=== PATIENT | male | born 1945 | race Caucasian/White ===

== ENCOUNTER 2017-07-02 10:22 | Emergency (ER) | payer OTHER ==
[~2017-07-02] VITALS: Ht 167.6 cm; Wt 95.6 kg
[2017-07-02 10:45] VITALS: TEMP 37.1; Ht 167.6 cm; Wt 95.6 kg
[2017-07-02] MEDS ORDERED: SODIUM CHLORIDE 0.9% 1000ML 1,000 ML IV STA (11:48)
[2017-07-02] MEDS ORDERED: OPTIRAY 320 IV PRN (12:00)
[2017-07-02 12:14] LABS: BASO % 0.4 %; BASO ABS # 0.03 K/uL (0-0.2); COMPLETE YES; EOS % 3.3 %; HEMATOCRIT 41.9 % (42-52); IG% 0.1 %; LYMPH % 32.7 %; MEAN CELL VOLUME 89.5 fL (80-100); MEAN CORPUSCULAR HEMOGLOBIN 31.2 pg (25-34); MEAN CORPUSCULAR HGB CONC 34.8 g/dl (32-36); MEAN PLATELET VOLUME 11.4 fL (7.4-10.4); MONO % 8.2 %; NEUT % 55.3 %; PLATELET COUNT 156 K/uL (130-400); RED BLOOD COUNT 4.68 M/uL (4.7-6.1); WHITE BLOOD COUNT 6.72 K/uL (4.8-10.8)
[2017-07-02 12:22] LABS: URINE APPEARANCE CLEAR (CLEAR); URINE BILIRUBIN NEG (NEG); URINE COLOR YELLOW; URINE NITRITE NEG (NEG); URINE SPECIFIC GRAVITY 1.024 (1.000-1.030); UROBILINOGEN NEG (NEG)
[2017-07-02 12:23] LABS: PARTIAL THROMBOPLASTIN RATIO 1.1; PROTHROMBIN TIME (PATIENT) 10.1 SECONDS (9.0-12.0)
[2017-07-02 12:26] LABS: MANUAL MICROSCOPIC REQUIRED? NO; REVIEW REQ? NO
[2017-07-02 12:35] LABS: ALT/SGPT 50 U/L (12-78); BLOOD UREA NITROGEN 14 mg/dl (7-18); BUN/CREATININE RATIO 12.1 (10-20); CALCIUM 9.2 mg/dl (8.5-10.1); CARBON DIOXIDE 27 mmol/L (21-32); CHLORIDE 105 mmol/L (98-107); CREATININE 1.19 mg/dl (0.60-1.40); GLUCOSE 109 mg/dl (70-99); SODIUM 138 mmol/L (136-145)
[2017-07-02 12:38] LABS: ALKALINE PHOSPHATASE 90 U/L (45-117); AST/SGOT 28 U/L (15-37)
[2017-07-02] MEDS ORDERED: TRAM-10 PO (13:09)
[2017-07-02] MEDS ORDERED: AMLO-110 PO (13:09)
[2017-07-02] MEDS ORDERED: PRLSR20 PO (13:09)
[2017-07-02] MEDS ORDERED: MELO15TA4 PO (13:09)
[2017-07-02] MEDS ORDERED: INDSR80 PO (13:09)
[2017-07-02] MEDS ORDERED: TERA5CAP PO (13:09)
--- NOTE | 2017-07-02 14:43 | DIAGNOSTIC IMAGING REPORT ---
ABD/PELVIS IV AND ORAL CONT CLINICAL HISTORY: 71 years-old Male presenting with ABDOMINAL PAIN/GI, diffuse abdominal pain, bloody stool. TECHNIQUE: Multidetector CT of the abdomen and pelvis was performed after the administration of oral and intravenous contrast. IV contrast: 92 mL of Optiray 320. A dose lowering technique was used consistent with the principles of ALARA (as low as reasonably achievable). COMPARISON: None. CT DOSE (mGy.cm): The estimated cumulative dose is 968.41 mGy.cm. FINDINGS: Watermelon Inspector topogram: Unremarkable. Lung bases: Lungs and pleural spaces clear. Normal heart size. No pericardial or pleural effusion. Liver: Normal morphology. Density consistent with hepatic steatosis. No focal lesion. Patent hepatic vasculature. Biliary: No intrahepatic or extrahepatic biliary ductal dilatation. Normal gallbladder. Pancreas: Mild parenchymal atrophy. Spleen: Normal. Adrenal glands: Normal. Kidneys and ureters: Normal. No hydronephrosis. Bladder: Mild circumferential bladder wall thickening could relate to chronic bladder obstruction. Pelvic organs: Prostate enlargement likely secondary to benign prostatic hyperplasia. Bowel: Diverticulosis of the proximal sigmoid colon and descending colon. Mild thickening of the sigmoid colon without pericolonic inflammatory change, suggestive of chronic diverticular disease. The appendix is normal. Post surgical changes of Ricky fundoplication. Few small duodenal diverticula suggested along the descending portion. Peritoneal cavity: No free fluid or intraperitoneal gas. Lymph nodes: No enlarged lymph nodes in the abdomen or pelvis. Vasculature: Atherosclerosis of the normal caliber abdominal aorta. IVC patent. Retroaortic left renal vein noted. Abdominal wall: Normal. Musculoskeletal: Degenerative changes of the spine focally at L5-S1. IMPRESSION: 1. Diverticulosis with evidence of chronic diverticular disease. No evidence of diverticulitis. No acute intra-abdominal pathology. 2. Hepatic steatosis. 3. Mild circumferential bladder wall thickening could relate to chronic bladder outlet obstruction in the setting of prostatomegaly. Electronically signed by: Jesus Toth M.D. 07/02/2017 2:42 PM Dictated Date/Time: 07/02/2017 2:35 PM
[2017-07-02 15:43] VITALS: BP 111/87; PULSE 65; O2SAT 94
--- NOTE | 2017-07-02 19:43 | EMERGENCY ROOM VISIT NOTE ---
ED Visit Note First contact with patient: 11:21 Chief Complaint: Abdominal pain and rectal bleeding History of Present Illness: Mr. Mann is a 71 year-old white male who ambulates into the ED complaining of bilateral lower quadrant abdominal pain and rectal bleeding. Historically patient reports diverticulitis and status post Whipple procedure. Patient reports his symptoms started approximately one month ago when he noticed that his urine smelled it like sulfur. That lasted approximately 3 weeks and stopped approximately one week ago. Patient goes on to report that approximately 18 hours ago he started developing bilateral lower abdominal pain. He places this discomfort inferior to the umbilicus and extends his discomfort into the medial border of the right and lower quadrants. He describes his pain as a sharp sensation. He reports initially is mild has gradually increased in intensity. Currently he rates his discomfort 5/10. The pain is nonradiating. He has not identified any aggravating or alleviating factors related to the pain. He has not taken any medication for pain prior to arrival at the hospital. Associated with his pain he reports she's been nauseated but has not vomited, has noted a decreased appetite and this morning after having a bowel movement he noted bright red blood in the toilet bowl and on the toilet tissue. He reports he contacted the [facility] in [place] and they recommended that he come to the emergency department for further evaluation and care. Patient denies fevers, chills, sweats, upper respiratory tract symptoms, shortness of breath, chest pain, diarrhea, constipation, black/tarry stools, urinary symptoms, hematuria, back/flank pain. Review of Systems: As noted above in history of present illness. All body systems were reviewed and found to be negative as noted above. Past Medical History: As previously noted and alcoholism, hypertension, emphysema, gallbladder disease Current Medications: Medications Dose Route/Sig Max Daily Dose Days Date Category Hytrin (Terazosin HCl) Unknown Strength Cap 1 Cap PO DAILY 07/02/17 Reported Meloxicam Unknown Strength Tab 1 Tab PO DAILY 07/02/17 Reported Prilosec (Omeprazole) Unknown Strength Capcr 1 Cap PO DAILY 07/02/17 Reported Norvasc (Amlodipine Besylate) Unknown Strength Tab 1 Tab PO DAILY 07/02/17 Reported Propranolol HCl ER (Propranolol HCl) 80 Mg Capcr 160 Mg PO DAILY 07/02/17 Reported Ultram (Tramadol HCl) 50 Mg Tab 150 Mg PO DAILY 07/02/17 Reported Allergies to Medications: Penicillin, trazodone, Klonopin. Social History: Patient is not employed; he feels safe in his home environment; he denies tobacco and alcohol use. Physical Examination: Vital Signs: Date Time Temp Pulse Resp B/P (MAP) Pulse Ox O2 Delivery O2 Flow Rate FiO2 07/02/17 15:43 65 111/87 94 Room Air 07/02/17 13:39 67 20 141/89 97 Room Air 07/02/17 11:57 68 18 141/93 95 Room Air 07/02/17 10:45 37.1 86 18 133/87 93 Room Air GENERAL: 71-year-old male in mild distress due to him times, nontoxic-appearing , afebrile and hemodynamically stable. NEUROLOGICAL: Awake, alert and oriented to person, place and time. Answering questions appropriately and following commands. Normal gait. Good hand eye coordination. SKIN: Warm, dry and pink. No soft tissue eruptions or trauma noted. HEENT: Atraumatic and normocephalic. PERRL. Sclera white and conjunctiva pink. Oral cavity moist and pink. Pharynx is nonerythematous or edematous. Speech normal. No lymphadenopathy. Trachea midline. No jugular venous distention. BACK: No tenderness over the bony spine. No CVA tenderness. THORAX: Lungs sounds are clear to auscultation and equal bilaterally with symmetrical chest wall. No wheezing, rales or rhonchi. No crepitus, tenderness , subcutaneous air or deformities noted. HEART: Regular rate and rhythm. No gallops, rubs or murmurs are appreciated. ABDOMEN: Mildly distended in the lower abdomen, soft and diffuse tenderness throughout the lower abdomen. Positive bowel sounds in all quadrants. No guarding, rigidity or organomegaly. RECTAL: No external tags or hemorrhoids. Normal rectal tone. No palpable rectal masses. Prostrate was slightly enlarged and firm to palpation. Heme- negative stools. EXTREMITIES: Moves all extremities well on command and with purpose. All distal neurovascular statuses are intact and equal bilaterally. ED Course: Patient is assessed as noted above. Patient's medication list was reviewed. Laboratory Testing: Test 07/02/17 11:50 07/02/17 12:00 Range/Units White Blood Count 6.72 4.8-10.8 K/uL Red Blood Count 4.68 4.7-6.1 M/uL Hemoglobin 14.6 14.0-18.0 g/dL Hematocrit 41.9 42-52 % Mean Corpuscular Volume 89.5 80-100 fL Mean Corpuscular Hemoglobin 31.2 25-34 pg Mean Corpuscular Hemoglobin Concent 34.8 32-36 g/dl Platelet Count 156 130-400 K/uL Mean Platelet Volume 11.4 7.4-10.4 fL Neutrophils (%) (Auto) 55.3 % Lymphocytes (%) (Auto) 32.7 % Monocytes (%) (Auto) 8.2 % Eosinophils (%) (Auto) 3.3 % Basophils (%) (Auto) 0.4 % Neutrophils # (Auto) 3.71 1.4-6.5 K/uL Lymphocytes # (Auto) 2.20 1.2-3.4 K/uL Monocytes # (Auto) 0.55 0.11-0.59 K/uL Eosinophils # (Auto) 0.22 0-0.5 K/uL Basophils # (Auto) 0.03 0-0.2 K/uL RDW Standard Deviation 42.2 36.4-46.3 fL RDW Coefficient of Variation 13.0 11.5-14.5 % Immature Granulocyte % (Auto) 0.1 % Immature Granulocyte # (Auto) 0.01 0.00-0.02 K/uL Prothrombin Time 10.1 9.0-12.0 SECONDS Prothromb Time International Ratio 1.0 0.9-1.1 Activated Partial Thromboplast Time 28.0 21.0-31.0 SECONDS Partial Thromboplastin Ratio 1.1 Sodium Level 138 136-145 mmol/L Potassium Level 4.0 3.5-5.1 mmol/L Chloride Level 105 98-107 mmol/L Carbon Dioxide Level 27 21-32 mmol/L Anion Gap 7.0 3-11 mmol/L Blood Urea Nitrogen 14 7-18 mg/dl Creatinine 1.19 0.60-1.40 mg/dl Est Creatinine Clear Calc Drug Dose 63.4 ml/min Estimated GFR () 71.8 Estimated GFR (Non- 62.0 BUN/Creatinine Ratio 12.1 10-20 Random Glucose 109 70-99 mg/dl Calcium Level 9.2 8.5-10.1 mg/dl Total Bilirubin 0.4 0.2-1 mg/dl Direct Bilirubin < 0.1 0-0.2 mg/dl Aspartate Amino Transf (AST/SGOT) 28 15-37 U/L Alanine Aminotransferase (ALT/SGPT) 50 12-78 U/L Alkaline Phosphatase 90 45-117 U/L Total Protein 7.8 6.4-8.2 gm/dl Albumin 4.0 3.4-5.0 gm/dl Lipase 220 73-393 U/L Urine Color YELLOW Urine Appearance CLEAR CLEAR Urine pH 5.0 4.5-7.5 Urine Specific [place] 1.024 1.000-1.030 Urine Protein NEG NEG Urine Glucose (UA) NEG NEG Urine Ketones NEG NEG Urine Occult Blood NEG NEG Urine Nitrite NEG NEG Urine Bilirubin NEG NEG Urine Urobilinogen NEG NEG Urine Leukocyte Esterase NEG NEG Contrast abdominal/pelvic CT: Was reviewed by myself and read by the radiologist and shows effort to kill low-dose is without evidence of diverticulitis, hepatic steatosis, mild circumferential bladder wall thickening which could be related to chronic bladder outlet obstruction in the setting of prostatomegaly. Patient was hydrated with normal saline; he was offered pain medications and refused. Patient was reassessed multiple times during his stay in the emergency department. Patient's case was reviewed with Dr. Smart; we agreed on diagnostic approach , treatment, disposition and plan. Patient was educated about today's findings and instructed on his treatment plan ; he verbalized understanding and agreement with this plan. Clinical Impression: Bilateral lower quadrant abdominal pain. Rectal bleeding. Decision-Making: Initially my differential diagnosis I considered hemorrhoids, diverticulitis, colitis, perforated viscus and other causes. Disposition: Patient discharged home in stable condition; prior to departure he was reassessed and subjectively reported he was pain and symptom-free. Plan: Patient was encouraged to continue his current medications. Patient was encouraged use 650 mg of acetaminophen every 6 hours as needed for pain. Patient was encouraged to observe his stools for additional bleeding. 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 Patient was encouraged return ED for worsening bleeding, rectal bleeding that turns black and tarry appearance, worsening abdominal pain, vomiting, fevers or any new/concerning symptoms.
== END 2017-07-02 16:02 | disposition home or self-care (01) ==
LOC: C.EDB 10:24
DX: R10.31 Right lower quadrant pain (principal); R10.32 Left lower quadrant pain; K62.5 Hemorrhage of anus and rectum; F10.20 Alcohol dependence, uncomplicated; I10 Essential (primary) hypertension; J43.9 Emphysema, unspecified

== ENCOUNTER 2023-09-16 08:53 | Observation (INO) ==
--- NOTE | 2023-09-16 09:27 | Emergency Department Note ---
History of Present Illness General Chief complaint: Stroke/CVA Symptoms Stated complaint: THURS/SEVERE HEADEACHE BLURRY VISION/LIPS Time Seen by Provider: 09/16/23 09:08 Source: patient, RN notes reviewed and old records reviewed (03/10/19-outpatient dermatology notes for tinea ) Mode of arrival: ambulatory Limitations: no limitations History of Present Illness This patient is a 77-year-old male comes in after [facility]. He had an episode this past where he was eating breakfast he thought he was going to pass out. He thought he might be dying. The episode lasted about an hour and a half. He had a headache at the time he was short of breath he had no chest pain his heart may have been beating fast he felt weak all over his eyes were blurry. He laid down and since since felt just generally tired and washed out. No headache anymore there is no trauma no chest pain he feels diffusely weak and tingly but says he tends to get that from his diabetes. A similar episode 2 weeks ago as well that lasted only about 5 seconds. He says his lips feel full now but he has no shortness of breath or swelling of the posterior oropharynx or sore throat. No current focal numbness or weakness he still says his vision feels slightly off but that is also been a chronic issue. Denies that he is on any blood thinners Home Medications Medication Instructions Recorded Confirmed Type amlodipine 10 mg tablet 10 mg PO QAM 03/10/19 09/16/23 History ketoconazole 2 % shampoo 1 appln topical .COMPLEX #120 mL 03/10/19 09/16/23 Rx pantoprazole 40 mg tablet,delayed 40 mg PO QAM 03/10/19 09/16/23 History release propranolol 80 mg capsule,24 80 mg PO BID 03/10/19 09/16/23 History hr,extended release tramadol 50 mg tablet 150 mg PO QAM 03/10/19 09/16/23 History gabapentin 300 mg tablet 300 mg PO TID 09/16/23 09/16/23 History lisinopril 5 mg tablet 2.5 mg PO QAM 09/16/23 09/16/23 History metformin 500 mg tablet,extended See Rx Instructions .Route .COMPLEX 09/16/23 09/16/23 History release 24 hr Allergies Allergy/AdvReac Type Severity Reaction Status Date / Time Penicillins Allergy Intermediate HIVES, Verified 09/16/23 11:52 CHILDHOOD thioridazine [From Mellaril] Allergy Unknown I don't Unverified 09/16/23 11:52 remember, it was a long time ago. 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 He did stop his cholesterol medicine a couple months ago. He initially denied any cardiac disease but tells me he may have had a heart attack in the past but they could not find any evidence of it at 1 point he says. Social history lives locally. Does not smoke Review of Systems A total of 10 systems reviewed and were otherwise negative Physical Exam Vital Signs Vital Signs - 24 hr 09/16/23 08:59 09/16/23 09:17 09/16/23 09:20 Temperature 36.1 C L Temperature Source Temporal Artery Scan Pulse Rate 67 66 61 Pulse Rate [Apical] Pulse Rate from SpO2 Sensor 63 60 Pulse Rhythm [Apical] Pulse Strength [Apical] Respiratory Rate 20 17 9 L Respiratory Effort / Characteristics Non-Labored Spontaneous Respiratory Depth Normal Blood Pressure 190/101 H Blood Pressure [Left Arm] Blood Pressure Mean 130 Blood Pressure Mean [Left Arm] Pulse Oximetry 96 97 95 Oxygen Delivery Method Room Air Sepsis Recent Fever Within 48 Hours No Sepsis New/Unexplained Change in Mental Status N/A Sepsis Action Taken by Nursing No Action Required 09/16/23 09:21 09/16/23 09:30 09/16/23 09:40 Temperature Temperature Source Pulse Rate 65 61 73 Pulse Rate [Apical] Pulse Rate from SpO2 Sensor 62 64 Pulse Rhythm [Apical] Pulse Strength [Apical] Respiratory Rate 16 16 Respiratory Effort / Characteristics Respiratory Depth Blood Pressure Blood Pressure [Left Arm] Blood Pressure Mean Blood Pressure Mean [Left Arm] Pulse Oximetry 96 96 Oxygen Delivery Method Sepsis Recent Fever Within 48 Hours Sepsis New/Unexplained Change in Mental Status Sepsis Action Taken by Nursing 09/16/23 09:50 09/16/23 10:00 09/16/23 10:04 Temperature Temperature Source Pulse Rate 55 L 71 Pulse Rate [Apical] 60 Pulse Rate from SpO2 Sensor 55 L 54 L Pulse Rhythm [Apical] Regular Pulse Strength [Apical] Normal Respiratory Rate 10 L 15 16 Respiratory Effort / Characteristics Respiratory Depth Blood Pressure Blood Pressure [Left Arm] 151/78 H Blood Pressure Mean Blood Pressure Mean [Left Arm] 102 Pulse Oximetry 95 94 95 Oxygen Delivery Method Room Air Sepsis Recent Fever Within 48 Hours Sepsis New/Unexplained Change in Mental Status Sepsis Action Taken by Nursing 09/16/23 10:04 09/16/23 10:04 09/16/23 10:10 Temperature Temperature Source Pulse Rate 60 55 L Pulse Rate [Apical] Pulse Rate from SpO2 Sensor 57 L 55 L Pulse Rhythm [Apical] Pulse Strength [Apical] Respiratory Rate 12 9 L Respiratory Effort / Characteristics Respiratory Depth Blood Pressure 151/96 H Blood Pressure [Left Arm] Blood Pressure Mean 110 Blood Pressure Mean [Left Arm] Pulse Oximetry 95 94 Oxygen Delivery Method Sepsis Recent Fever Within 48 Hours Sepsis New/Unexplained Change in Mental Status Sepsis Action Taken by Nursing 09/16/23 10:20 09/16/23 10:30 09/16/23 10:40 Temperature Temperature Source Pulse Rate 55 L 57 L 55 L Pulse Rate [Apical] Pulse Rate from SpO2 Sensor 55 L 58 L 56 L Pulse Rhythm [Apical] Pulse Strength [Apical] Respiratory Rate 10 L 10 L 10 L Respiratory Effort / Characteristics Respiratory Depth Blood Pressure Blood Pressure [Left Arm] Blood Pressure Mean Blood Pressure Mean [Left Arm] Pulse Oximetry 97 94 96 Oxygen Delivery Method Sepsis Recent Fever Within 48 Hours Sepsis New/Unexplained Change in Mental Status Sepsis Action Taken by Nursing 09/16/23 10:50 09/16/23 11:10 09/16/23 11:18 Temperature Temperature Source Pulse Rate 119 H 59 L 150 H Pulse Rate [Apical] Pulse Rate from SpO2 Sensor 57 L Pulse Rhythm [Apical] Pulse Strength [Apical] Respiratory Rate 17 13 Respiratory Effort / Characteristics Respiratory Depth Blood Pressure Blood Pressure [Left Arm] Blood Pressure Mean Blood Pressure Mean [Left Arm] Pulse Oximetry 97 Oxygen Delivery Method Sepsis Recent Fever Within 48 Hours Sepsis New/Unexplained Change in Mental Status Sepsis Action Taken by Nursing 09/16/23 11:20 09/16/23 11:30 09/16/23 11:40 Temperature Temperature Source Pulse Rate 85 57 L 58 L Pulse Rate [Apical] Pulse Rate from SpO2 Sensor 44 L 59 L 57 L Pulse Rhythm [Apical] Pulse Strength [Apical] Respiratory Rate 14 18 18 Respiratory Effort / Characteristics Respiratory Depth Blood Pressure Blood Pressure [Left Arm] Blood Pressure Mean Blood Pressure Mean [Left Arm] Pulse Oximetry 94 96 96 Oxygen Delivery Method Sepsis Recent Fever Within 48 Hours Sepsis New/Unexplained Change in Mental Status Sepsis Action Taken by Nursing 09/16/23 11:50 09/16/23 12:00 09/16/23 12:10 Temperature Temperature Source Pulse Rate 62 58 L 55 L Pulse Rate [Apical] Pulse Rate from SpO2 Sensor 61 57 L 56 L Pulse Rhythm [Apical] Pulse Strength [Apical] Respiratory Rate 11 L 13 9 L Respiratory Effort / Characteristics Respiratory Depth Blood Pressure Blood Pressure [Left Arm] Blood Pressure Mean Blood Pressure Mean [Left Arm] Pulse Oximetry 95 95 95 Oxygen Delivery Method Sepsis Recent Fever Within 48 Hours Sepsis New/Unexplained Change in Mental Status Sepsis Action Taken by Nursing 09/16/23 12:20 09/16/23 12:30 Temperature Temperature Source Pulse Rate 64 88 Pulse Rate [Apical] Pulse Rate from SpO2 Sensor 61 54 L Pulse Rhythm [Apical] Pulse Strength [Apical] Respiratory Rate 18 17 Respiratory Effort / Characteristics Respiratory Depth Blood Pressure Blood Pressure [Left Arm] Blood Pressure Mean Blood Pressure Mean [Left Arm] Pulse Oximetry 97 96 Oxygen Delivery Method Sepsis Recent Fever Within 48 Hours Sepsis New/Unexplained Change in Mental Status Sepsis Action Taken by Nursing General: Well developed well nourished older male who appears in no acute distress, breathing comfortably on room air. Normal speech, answers all questions appropriately, nonslurred HEENT: Normal cephalic atraumatic. Pupils are equal round and reactive to light. Extraocular movements are intact. Oropharynx is pink with moist mucous membranes. No swelling of the mouth lips or tongue. No visible swelling the lips. Posterior oropharynx is wide open without swelling or angioedema. The tongue appears normal as well. Neck: Supple with a midline trachea. No meningeal signs or stiffness, no JVD or bruits. No Stridor. Chest: Clear to auscultation bilaterally. No wheezes or rhonchi. No increased work of breathing. Heart: Regular rate and rhythm without murmurs or gallops. Abdomen: Soft nontender, nondistended without rebound guarding or rigidity. Extremities: No cyanosis clubbing or edema. No calf tenderness or assymetry Spine/Back. Non tender to palpation. No CVA tenderness Skin: Good turgor without rashes. Neurologic exam: Cranial nerves two through 12 are intact. Motor and sensation are intact and symmetrical throughout. Finger-nose intact. Course Administered Medications Discontinued Medications Sodium Chloride (Nss) 500 mls @ 999 mls/hr IV .Q31M STA Stop: 09/16/23 09:49 Last Infusion: 09/16/23 13:03 Dose: Infused Documented By: Admin: 09/16/23 10:00 Dose: 999 mls/hr Documented By: MAMTA Medical Decision Making Differential Diagnosis Arrhythmia, acute coronary syndrome, neurologic event, TIA, electrolyte or metabolic abnormality, intracranial process, infection, Medical Records Attestation: I reviewed the patient's medical records. Home Medications Current Medication List: was personally reviewed by me Laboratory Data Attestation: I reviewed the patient's lab results. 09/16/23 09:15 09/16/23 10:15 Lab Results 09/16/23 09/16/23 Range/Units 09:15 10:15 WBC 6.50 (4.8-10.8) K/ul RBC 5.20 (4.70-6.10) M/uL Hgb 15.3 (14.0-18.0) g/dl Hct 45.3 (42.0-52.0) % MCV 87.1 (80.0-100.0) fL MCH 29.4 (25.0-34.0) pg MCHC 33.8 (32.0-36.0) g/dL RDW Std Deviation 43.1 (36.4-46.3) fL RDW Coeff of Ranjana 13.6 (11.5-14.5) % Plt Count 172 (130-400) K/uL MPV 11.2 (9.4-12.4) fL Immature Gran % (Auto) 0.3 % Neut % (Auto) 39.3 % Lymph % (Auto) 46.6 % [place] % (Auto) 8.2 % Eos % (Auto) 4.8 % Baso % (Auto) 0.8 % Neut # (Auto) 2.56 (1.40-6.50) K/uL Lymph # (Auto) 3.03 (1.20-3.40) K/uL [place] # (Auto) 0.53 (0.11-0.59) K/uL Eos # (Auto) 0.31 (0.00-0.50) K/uL Baso # (Auto) 0.05 (0.00-0.20) K/uL Immature Gran # (Auto) 0.02 (0.01-0.20) K/uL APTT 30 (21-31) Seconds PTT Ratio 1.1 Sodium 137 (136-145) mmol/L Potassium TNP 3.9 Chloride 105 (98-107) mmol/L Carbon Dioxide 24 (21-32) mmol/L Anion Gap 8 (3-11) BUN 16 (6-23) mg/dl Creatinine 0.97 (0.6-1.4) mg/dl Est Cr Clr Drug Dosing 71.3 ml/min Est GFR ( Amer) 88.1 ml/min Est GFR (Non-Af Amer) 76.1 ml/min BUN/Creatinine Ratio 16.5 (10-20) Glucose 99 (70-99(Fasting)) mg/dl Calcium 9.9 (8.6-10.3) mg/dl Total Bilirubin 0.6 (0.2-1.0) mg/dl AST TNP 37 ALT 56 H (7-52) U/L Alkaline Phosphatase 61 (34-104) U/L Troponin I High Sens 5.4 (0-20) pg/ml Total Protein 8.1 (6.0-8.3) gm/dl Albumin 4.8 (3.4-5.0) gm/dl Globulin 3.3 (2.5-4.0) gm/dl Albumin/Globulin Ratio 1.5 (0.9-2) Lipase 69 (11-82) U/L Lyme Disease Screen Negative (Negative) Imaging Data Attestation: I personally reviewed and interpreted this imaging study as follows: My Impression: Head CTno hemorrhage or mass effect seen upon my independent interpretation Chest x-rayno acute infiltrate, failure, pneumothorax seen Radiologist's Impression: Chest X-Ray 09/16/23 09:19 XR chest 1V portable HISTORY: Atypical chest pain. COMPARISON: None. FINDINGS: Small left basilar linear densities favor subsegmental atelectasis or scarring. Otherwise, no focal lung consolidations to suggest a pneumonia. No evidence for pulmonary edema. The heart is normal in size. No pleural fusions. No pneumothorax. No acute fractures. IMPRESSION: No acute process. ACT 112: Negative or not required by law. Electronically signed by: Arnav Hayes M.D. 09/16/2023 10:[address] 09/16/23 09:19 CT head/brain wo con CLINICAL HISTORY: 77 years-old Male with headache, diffuse weakness. Acute headache with weakness TECHNIQUE: Multiple axial CT images of the head were obtained without contrast. A dose lowering technique was utilized adhering to the principles of ALARA. CT DOSE: 602.38 mGy.cm COMPARISON: None. FINDINGS: No acute intracranial hemorrhage, midline shift, intracranial mass, hydrocephalus, territorial ischemia or abnormal extra-axial collection. Involutional changes with chronic microvascular ischemic disease. The calvarium is intact. Severe near complete opacification of the left maxillary sinus with mucoperiosteal thickening. Additional mild mucosal thickening of the left ethmoid air cells and sphenoid sinus. Unremarkable soft tissues. Prior right-sided lens repair. IMPRESSION: No acute intracranial abnormality. ACT 112: Negative or not required by law. The above report was generated using voice recognition software. It may contain grammatical, syntax or spelling errors. Electronically signed by: Marciano Laws M.D. 09/16/2023 11:13 AM ECG Data Attestation: I personally reviewed and interpreted this ECG as follows: Indication: + weakness Rate (beats per minute): 69 Rhythm: + normal sinus ECG Intervals/blocks: + IVCD ECG [place]: + Normal ECG ST segments: + Nonspecific ST abnormalities ECG Findings: no PACs or no PVCs Comparison ECG Date: no prior available Additional Comments: EKG #2: Sinus bradycardia intermittently with a run of what appears to be A-fib. Rate is 150 during the A-fib which lasted approximately 7 beats. No ischemic changes. Although the complex of the QRS is wide it appears unchanged from the complex prior to the run of A-fib MDM Narrative This patient comes in as described above. He was placed on a site monitor and B5. He has had 2 episodes where he felt very ill like he might pass out he had a headache associated with 1 as well as visual changes. The last episode lasted an hour and was on . He has no acute neurologic deficits at present to suggest acute stroke. IV X established multiple blood testing was obtained his EKG shows normal sinus rhythm there is nonspecific interventricular conduction delay but no old EKG available for comparison he has had no chest pain. Multiple blood testing was obtained as well as chest x-ray and head CT. He was COVID tested. He was reassessed frequently. He has no white count or fever discussed infection. No significant anemia. Chest x-ray does not suggest congestive heart failure, pneumonia, pneumothorax. His CAT scan was unremarkable. His labs are very reassuring there is no sign of electrolyte or metabolic abnormalities troponin was negative. He did however have several episodes on the monitor where he had small runs of what appears to be A-fib. I do not think is likely ventricular tachycardia. I do think he needs to be admitted/observed for further inpatient treatment and evaluation. His second EKG is different than the first and that it shows the A-fib and captured it. I have discussed the case at length with Dr. Barun in consultation and she saw the patient ER for admission/observation Continuous site monitor: Orders placed in the EMR for continuous cardiac monitoring: Upon my evaluation he was noted to be in normal sinus rhythm with a rate of 65. He did have intermittent episodes where he had about 8 beats of A- fib at a time when I reviewed the monitor strips. Impression & Plan Near syncope, Weakness, Atrial fibrillation, new onset, Diabetes mellitus type 2 in obese Discharge Plan Visit Data Chief Complaint: Stroke/CVA Symptoms Stated Complaint: THURS/SEVERE HEADEACHE BLURRY VISION/LIPS ED Provider: Apolinar Lima Discharge Problem: Near syncope, Weakness, Atrial fibrillation, new onset, Diabetes mellitus type 2 in obese Patient Disposition: Admitted As Inpatient Discharge Instructions Interventions: ED Discharge Assessment Last Done: 09/16/23 13:57
[2023-09-16 09:33] LABS: Basophils # (auto) 0.05 K/uL (0.00-0.20); Basophils % (auto) 0.8 %; Eosinophils # (auto) 0.31 K/uL (0.00-0.50); Eosinophils % (auto) 4.8 %; Hematocrit (blood only) 45.3 % (42.0-52.0); Hemoglobin 15.3 g/dl (14.0-18.0); Immature Granulocytes # (auto) 0.02 K/uL (0.01-0.20); Immature Granulocytes % (auto) 0.3 %; Lymphocytes # (auto) 3.03 K/uL (1.20-3.40); Lymphocytes % (auto) 46.6 %; Mean Corpuscular Hemoglobin 29.4 pg (25.0-34.0); Mean Corpuscular Hgb Conc 33.8 g/dL (32.0-36.0); Mean Corpuscular Volume 87.1 fL (80.0-100.0); Mean Platelet Volume 11.2 fL (9.4-12.4); Monocytes # (auto) 0.53 K/uL (0.11-0.59); Monocytes % (auto) 8.2 %; Neutrophils # (auto) 2.56 K/uL (1.40-6.50); Neutrophils % (auto) 39.3 %; Platelet Count 172 K/uL (130-400); RDW Coefficient of Variation 13.6 % (11.5-14.5); RDW Standard Deviation 43.1 fL (36.4-46.3)
[2023-09-16 09:58] LABS: Partial Thromboplastin Ratio 1.1; Partial Thromboplastin Time 30 Seconds (21-31)
[2023-09-16] MEDS: SODIUM CHLORIDE 0.9% 500 ML IV STA (10:00)
[2023-09-16 10:10] LABS: Alanine Aminotransferase 56 U/L (7-52); Albumin Globulin Ratio 1.5 (0.9-2); Albumin Level 4.8 gm/dl (3.4-5.0); Alkaline Phosphatase 61 U/L (34-104); Anion Gap 8 (3-11); BUN Creatinine Ratio 16.5 (10-20); Bilirubin,Total 0.6 mg/dl (0.2-1.0); Blood Urea Nitrogen 16 mg/dl (6-23); Calcium 9.9 mg/dl (8.6-10.3); Carbon Dioxide 24 mmol/L (21-32); Chloride 105 mmol/L (98-107); Creatinine Clr Calc Pharmacy 71.3 ml/min; Est GFR (African American) 88.1 ml/min; Est GFR (Non-African American) 76.1 ml/min; Globulin 3.3 gm/dl (2.5-4.0); Glucose 99 mg/dl (70-99(Fasting)); Lipase 69 U/L (11-82); Sodium 137 mmol/L (136-145); Total Protein 8.1 gm/dl (6.0-8.3); Troponin I High Sensitivity 5.4 pg/ml (0-20)
--- NOTE | 2023-09-16 10:14 | XRay Report ---
XR chest 1V portable HISTORY: Atypical chest pain. COMPARISON: None. FINDINGS: Small left basilar linear densities favor subsegmental atelectasis or scarring. Otherwise, no focal lung consolidations to suggest a pneumonia. No evidence for pulmonary edema. The heart is no rmal in size. No pleural fusions. No pneumothorax. No acute fractures. IMPRESSION: No acute process. ACT 112: Negative or not required by law. Electronically signed by: Arnav Hayes M.D. 09/16/2023 10:12 AM
[2023-09-16 10:49] LABS: Potassium 3.9 mmol/L (3.5-5.1)
--- NOTE | 2023-09-16 11:14 | CT Scan Report ---
CT head/brain wo con CLINICAL HISTORY: 77 years-old Male with headache, diffuse weakness. Acute headache with weakness TECHNIQUE: Multiple axial CT images of the head were obtained without contrast. A dose lowering tech nique was utilized adhering to the principles of ALARA. CT DOSE: 602.38 mGy.cm COMPARISON: None. FINDINGS: No acute intracranial hemorrhage, midline shift, intracranial mass, hydrocephalus, territorial ischem ia or abnormal extra-axial collection. Involutional changes with chronic microvascular ischemic disea se. The calvarium is intact. Severe near complete opacification of the left maxillary sinus with mucoper iosteal thickening. Additional mild mucosal thickening of the left ethmoid air cells and sphenoid sin us. Unremarkable soft tissues. Prior right-sided lens repair. IMPRESSION: No acute intracranial abnormality. ACT 112: Negative or not required by law. The above report was generated using voice recognition software. It may contain grammatical, syntax o r spelling errors. Electronically signed by: Marciano Laws M.D. 09/16/2023 11:13 AM
--- NOTE | 2023-09-16 12:34 | History & Physical Report ---
Date of Service September 16, 2023 Assessment & Plan (1) Near syncope: Plan: Patient presents with 1 brief and then 1 more prolonged episode of lightheadedness, near syncope, blurry vision, headache over the last 10 days. No symptoms of acute infection or illness i.e. afebrile, no leukocytosis, no nausea/vomiting/diarrhea/abdominal pain, no cough or cold symptoms. Hemoglobin normal, renal function and electrolytes all normal CT head does show significant left maxillary sinusitis-unknown chronicity Chest x-ray no pneumonia Did have some runs of atrial tachycardia versus A-fib on telemetry in the ER possibly with associated lightheadedness The lightheadedness does not seem to be orthostatic although he did feel better after he laid down on the kitchen floor during the more prolonged episode Troponin is negative, ECG with intraventricular conduction delay, seemingly with LBBB, unknown chronicity -Admit to PCU for telemetry monitoring -Check echocardiogram for valvular issues and to look at EF, bubble study -Consult cardiology for further evaluation -Treat acute sinusitis with IV ceftriaxone in case this is contributing -Check orthostatics -Check brain MRI given blurry vision, headache, and near syncope although do not suspect stroke as no other focal neurological signs or symptoms -Fall precautions (2) Atrial tachycardia: Plan: As noted above, consult cardiology, monitor on telemetry Check echocardiogram (3) Headache: Plan: As noted above, perhaps due to sinusitis versus hypotension? Now resolved Check Lyme titer Treating sinusitis with antibiotics (4) Diabetes mellitus type 2 in obese: Plan: Only on metformin at home Accu-Cheks, NovoLog supplemental insulin only Check hemoglobin A1c in the morning (5) Hypertension: Plan: Blood pressures are mildly hypertensive here Continue home lisinopril, propranolol, amlodipine (6) Arthritis: Plan: Continue home tramadol 150 mg p.o. once daily in the morning (7) GERD (gastroesophageal reflux disease): Plan: Continue PPI Plan DVT prophylaxis-Lovenox SQ Disposition-bring in on observation to PCU Full code but would not want prolonged life support if in a poor prognostic state. Also is Denominational and would not want any blood transfusions History of Present Illness Chief Complaint: Lightheadedness, headache episodes Primary Care Provider: Meliza Johnson PA-C This patient is a 77-year-old male with history of DM 2, neuropathy, HTN, GERD, chronic arthritis pain who presents to the ER with 2 episodes in the last 10 days where he felt lightheaded, had a headache, some blurry vision, and the second episode lasted an hour and he felt like he was going to . There was no associated chest pain, heart palpitations, or syncope. Since the last episode 4 days ago, he continues to feel washed out and has been laying in bed all weekend, only getting out of bed to make himself meals. He reports that his vision is still not quite back to baseline. He did have an episode of "wooziness" here in the ER. He reports he has had sinus issues for many years. He also felt some associated shortness of breath with these episodes and has noticed dyspnea even at rest perhaps for several months. He called his PCP and they advised him to come to the ER for further evaluation. Here, his labs were all essentially normal, a chest x-ray showed nothing acute, a CT of the head did show a severe opacification of the left maxillary sinus along with some inflammation in the left ethmoid and sphenoid sinuses. On telemetry in the ER, he had some frequent runs of atrial fibrillation versus atrial tachycardia but otherwise was bradycardic, afebrile, nonhypoxic, and had mildly elevated blood pressures. Allergies Allergy/AdvReac Type Severity Reaction Status Date / Time Penicillins Allergy Intermediate HIVES, Verified 09/16/23 11:52 CHILDHOOD thioridazine [From Mellaril] Allergy Unknown I don't Unverified 09/16/23 11:52 remember, it was a long time ago. clonazepam AdvReac Intermediate HEADACHE Verified 09/16/23 11:52 trazodone AdvReac Unknown "TOO HAPPY" Verified 09/16/23 11:52 Home Medications Medication Instructions Recorded Confirmed Type amlodipine 10 mg tablet 10 mg PO QAM 03/10/19 09/16/23 History ketoconazole 2 % shampoo 1 appln topical .COMPLEX #120 mL 03/10/19 09/16/23 Rx pantoprazole 40 mg tablet,delayed 40 mg PO QAM 03/10/19 09/16/23 History release propranolol 80 mg capsule,24 80 mg PO BID 03/10/19 09/16/23 History hr,extended release tramadol 50 mg tablet 150 mg PO QAM 03/10/19 09/16/23 History gabapentin 300 mg tablet 300 mg PO TID 09/16/23 09/16/23 History lisinopril 5 mg tablet 2.5 mg PO QAM 09/16/23 09/16/23 History metformin 500 mg tablet,extended See Rx Instructions .Route .COMPLEX 09/16/23 09/16/23 History release 24 hr Past Med/Surg History Medical History (Updated 09/16/23 @ 13:39 by Kaitlin Braun MD) GERD (gastroesophageal reflux disease) Diabetes mellitus type 2 in obese Gastric ulcer Hypercholesteremia Hypertension Arthritis Exposure to Agent [place] Surgical History S/P bariatric surgery due to intestinal and stomach issues Family History (Updated 09/16/23 @ 12:31 by Kaitlin Braun MD) Other Family history non-contributory Social History Smoking Status: Never smoker Preferred Language: Haitian Feels Safe at Home: Yes Review of Systems Review of Systems: All systems reviewed & are unremarkable except as noted in HPI & below No fevers or chills, no recent tick bites or rashes. Has chronic joint pains all over controlled with tramadol No diarrhea or constipation, no abdominal pains or nausea Physical Exam Constitutional: WD/WN, vitals as above Eyes: PERRL, conjunctivae normal, anicteric sclerae ENMT: external ear and nose normal, oropharynx normal Neck: trachea midline, no thyromegaly Respiratory: normal respiratory effort, lungs clear to auscultation Cardiovascular: RRR, no murmur, no edema Chest (Breasts): Chest: normal inspection of chest Gastrointestinal (Abdomen): normal bowel sounds, soft, nontender, no hepatosplenomegaly Musculoskeletal: Extremities: extremities normal to inspection; no cyanosis and no clubbing Skin: no rashes, warm and dry Neurologic: moves all extremities and awake; no focal motor deficits Psychiatric: A+Ox3, euthymic affect Lymphatic: no lymphedema Results & Data Results & Data Vital Signs (Past 12 Hours) Vital Signs Temp Pulse Pulse Resp BP BP Pulse Ox 09/16/23 12:10 55 L 9 L 95 09/16/23 12:00 58 L 13 95 09/16/23 11:50 62 11 L 95 09/16/23 11:40 58 L 18 96 09/16/23 11:30 57 L 18 96 09/16/23 11:20 85 14 94 09/16/23 11:18 150 H 09/16/23 11:10 59 L 13 97 09/16/23 10:50 119 H 17 09/16/23 10:40 55 L 10 L 96 09/16/23 10:30 57 L 10 L 94 09/16/23 10:20 55 L 10 L 97 09/16/23 10:10 55 L 9 L 94 09/16/23 10:04 151/96 H 09/16/23 10:04 60 12 95 09/16/23 10:04 60 16 151/78 H 95 09/16/23 10:00 71 15 94 09/16/23 09:50 55 L 10 L 95 09/16/23 09:40 73 16 96 09/16/23 09:30 61 16 96 09/16/23 09:21 65 09/16/23 09:20 61 9 L 95 09/16/23 09:17 66 17 97 09/16/23 08:59 36.1 C L 67 20 190/101 H 96 O2 Del Method 09/16/23 12:10 09/16/23 12:00 09/16/23 11:50 09/16/23 11:40 09/16/23 11:30 09/16/23 11:20 09/16/23 11:18 09/16/23 11:10 09/16/23 10:50 09/16/23 10:40 09/16/23 10:30 09/16/23 10:20 09/16/23 10:10 09/16/23 10:04 09/16/23 10:04 09/16/23 10:04 Room Air 09/16/23 10:00 09/16/23 09:50 09/16/23 09:40 09/16/23 09:30 09/16/23 09:21 09/16/23 09:20 09/16/23 09:17 09/16/23 08:59 Room Air Laboratory Results CBC, PTT, CMP, troponin, lipase, COVID-19 test all reviewed 09/16/23 09/16/23 09/16/23 Range/Units Unknown 10:15 09:15 WBC 6.50 (4.8-10.8) K/ul RBC 5.20 (4.70-6.10) M/uL Hgb 15.3 (14.0-18.0) g/dl Hct 45.3 (42.0-52.0) % MCV 87.1 (80.0-100.0) fL MCH 29.4 (25.0-34.0) pg MCHC 33.8 (32.0-36.0) g/dL RDW Std Deviation 43.1 (36.4-46.3) fL RDW Coeff of Ranjana 13.6 (11.5-14.5) % Plt Count 172 (130-400) K/uL MPV 11.2 (9.4-12.4) fL Immature Gran % (Auto) 0.3 % Neut % (Auto) 39.3 % Lymph % (Auto) 46.6 % [place] % (Auto) 8.2 % Eos % (Auto) 4.8 % Baso % (Auto) 0.8 % Neut # (Auto) 2.56 (1.40-6.50) K/uL Lymph # (Auto) 3.03 (1.20-3.40) K/uL [place] # (Auto) 0.53 (0.11-0.59) K/uL Eos # (Auto) 0.31 (0.00-0.50) K/uL Baso # (Auto) 0.05 (0.00-0.20) K/uL Immature Gran # (Auto) 0.02 (0.01-0.20) K/uL APTT 30 (21-31) Seconds PTT Ratio 1.1 Sodium 137 (136-145) mmol/L Potassium 3.9 TNP Chloride 105 (98-107) mmol/L Carbon Dioxide 24 (21-32) mmol/L Anion Gap 8 (3-11) BUN 16 (6-23) mg/dl Creatinine 0.97 (0.6-1.4) mg/dl Est Cr Clr Drug Dosing 71.3 ml/min Est GFR ( Amer) 88.1 ml/min Est GFR (Non-Af Amer) 76.1 ml/min BUN/Creatinine Ratio 16.5 (10-20) Glucose 99 (70-99(Fasting)) mg/dl Calcium 9.9 (8.6-10.3) mg/dl Total Bilirubin 0.6 (0.2-1.0) mg/dl AST 37 TNP ALT 56 H (7-52) U/L Alkaline Phosphatase 61 (34-104) U/L Troponin I High Sens 5.4 (0-20) pg/ml Total Protein 8.1 (6.0-8.3) gm/dl Albumin 4.8 (3.4-5.0) gm/dl Globulin 3.3 (2.5-4.0) gm/dl Albumin/Globulin Ratio 1.5 (0.9-2) Lipase 69 (11-82) U/L SARS-CoV-2, RNA, NAAT NEGATIVE (NEGATIVE) Diagnostic Findings Chest X-Ray 09/16/23 09:19 XR chest 1V portable HISTORY: Atypical chest pain. COMPARISON: None. FINDINGS: Small left basilar linear densities favor subsegmental atelectasis or scarring. Otherwise, no focal lung consolidations to suggest a pneumonia. No evidence for pulmonary edema. The heart is normal in size. No pleural fusions. No pneumothorax. No acute fractures. IMPRESSION: No acute process. ACT 112: Negative or not required by law. Electronically signed by: Arnav Hayes M.D. 09/16/2023 10:[address] 09/16/23 09:19 CT head/brain wo con CLINICAL HISTORY: 77 years-old Male with headache, diffuse weakness. Acute headache with weakness TECHNIQUE: Multiple axial CT images of the head were obtained without contrast. A dose lowering technique was utilized adhering to the principles of ALARA. CT DOSE: 602.38 mGy.cm COMPARISON: None. FINDINGS: No acute intracranial hemorrhage, midline shift, intracranial mass, hydrocephalus, territorial ischemia or abnormal extra-axial collection. Involutional changes with chronic microvascular ischemic disease. The calvarium is intact. Severe near complete opacification of the left maxillary sinus with mucoperiosteal thickening. Additional mild mucosal thickening of the left ethmoid air cells and sphenoid sinus. Unremarkable soft tissues. Prior right-sided lens repair. IMPRESSION: No acute intracranial abnormality. ACT 112: Negative or not required by law. The above report was generated using voice recognition software. It may contain grammatical, syntax or spelling errors. Electronically signed by: Marciano Laws M.D. 09/16/2023 11:13 AM ECG Additional Comments: ECG from 09/16/2023 at 9:11 AM with sinus rhythm with PACs, rate 69, left bundle branch block, no ischemic changes ECG from 09/16/2023 at 11:19 AM with 10 beat run of atrial tachycardia but otherwise normal sinus rhythm with left bundle branch block No old ECGs to compare to Code Status & VTE Plan Code Status Full code VTE Prophylaxis Plan VTE Prophylaxis will be ordered: Yes PG Care Time/CCT Total # of Minutes Spent Total Time Spent with Patient: Total time spent is greater than 50% in coordination of care (as documented) at patient's floor/unit and/or counseling patient: Coding Level of Care Code 87931 INT INP/OBS CARE 375MIN Diagnoses Near syncope R55 Atrial tachycardia I47.19 Headache R51.9 Diabetes mellitus type 2 in obese E11.69; E66.9 Hypertension I10 Arthritis M19.90 GERD (gastroesophageal reflux disease) K21.9
[2023-09-16] MEDS ORDERED: ACETAMINOPHEN 325 MG TAB PO PRN (13:57)
[2023-09-16] MEDS ORDERED: GLUCAGON FOR INJ 1 MG VIAL SQ PRN (13:57)
[2023-09-16] MEDS ORDERED: GLUCOSE 40% GEL 15 GM TUBE PO PRN (13:57)
[2023-09-16] MEDS ORDERED: GLUCOSE 10 TAB/TUBE PO PRN (13:57)
[2023-09-16] MEDS ORDERED: CARBOHYDRATES FOR HYPOGLYCEMIA PO PRN (13:57)
[2023-09-16] MEDS ORDERED: POLYETHYLENE (MIRALAX) 17 GM PACK PO PRN (13:57)
[2023-09-16] MEDS ORDERED: DEXTROSE 50% 50 ML SYRINGE IV PRN (13:57)
[2023-09-16] MEDS: GADOBUTROL 65ML VIAL IV ONE (14:45)
--- NOTE | 2023-09-16 15:18 | Magnetic Resonance Report ---
MRI OF THE BRAIN WITHOUT AND WITH IV CONTRAST CLINICAL HISTORY: headache,blurry vision,near syncope COMPARISON STUDY: Head CT September 16, 2023. TECHNIQUE: Utilizing a 1.5 Jazlyn magnet and dedicated coil, multiplanar, multiecho imaging of the br ain was performed pre and postcontrast administration. IV administration of 9.6 mL of Gadavist contr ast was uneventful. FINDINGS: There are no foci of restricted diffusion to suggest acute infarct. No acute intracranial h emorrhage, midline shift or mass effect is present. Ventricular system is unremarkable. Basal cistern s are patent. Flow-voids for the major intracranial vessels are present. There is no intracranial mas s or pathologic enhancement. Scattered white matter T2 hyperintense foci suggest mild small vessel di sease. Air-fluid level with mucosal thickening within left maxillary sinus is noted. There is moderat e mucosal thickening of the left sphenoid sinus. IMPRESSION: 1. No acute intracranial findings. 2. No intracranial mass or pathologic enhancement. 3. Left maxillary sinus air-fluid level with mucosal thickening. This may reflect acute on chronic si nusitis. ACT 112: Negative or not required by law. Electronically signed by: Andrez West M.D. 09/16/2023 3:16 PM
--- NOTE | 2023-09-16 15:36 | Cardiology Consultation ---
Date of Consultation September 16, 2023 Assessment & Plan (1) Near syncope: (2) Atrial tachycardia: (3) Hypertension: (4) Visual changes: Plan ASSESSMENT/PLAN: 1. Near syncope: Etiology uncertain. Still has had mild symptoms although improved, for days and even while laying in bed during this hospital stay. Mild bradycardia, but should not cause symptoms to this degree. Blood pressure initially hypertensive but has mostly been normotensive to mildly hypertensive and should not cause such symptoms. Symptoms not consistent with arrhythmia given that he is having continued symptoms despite no significant arrhythmia. Recommend continuous telemetry while here and [facility] evaluate for a more significant arrhythmia. Carotid duplex recommended. Found to have sinusitis which is being addressed by primary hospitalist service. 2. Visual change: Persistent. Recommend ophthalmology appointment/evaluation. Defer to primary hospitalist service. 3. Hypertension: Blood pressure mostly normotensive to mildly hypertensive during this hospital stay. Can continue home regimen and make adjustments if necessary. Recommended orthostatic vitals, which was discussed with nursing staff in the ER. 4. Atrial tachycardia: Short atrial run noted on ECG while here. No sustained arrhythmia noted on telemetry. Continue telemetry. His presentation is not consistent with arrhythmia however given the fact that symptoms continue to linger despite no arrhythmia on telemetry corresponding with his symptoms. Consider outpatient monitor given his more dramatic symptoms that were more short-lived prehospital. This can be arranged through the [place] where he receives his outpatient medical care. No specific treatment is warranted at this time and he is already mildly bradycardic at times with his longstanding propranolol. 5. Disposition: Cardiology will sign off at this time. Call with any further questions or concerns. Thank you for allowing me to participate in the care of your patient. Please call for any other questions or concerns. Sincerely, Sánchez Ricci M.D. History of Present Illness Reason for Consultation: Near syncope, possible afib/atrial tachycardia Requesting Physician: Kaitlin Braun MD Attending Physician: Kaitlin Braun MD History of Present Illness Mr. Mann ('november tree') is a very pleasant 77-year-old gentleman with a history significant for type 2 diabetes, hypertension, dyslipidemia, and gastric surgery. He is followed through the [place] system. He was admitted on 09/16/2023 due to ongoing symptoms over the past several days. He was evaluated earlier this evening. Approximately 2 weeks ago, while he was standing at the counter with his head forward and down, he had a "strangeness" but he never felt before, over him with a brief loss of balance and lightheadedness. It lasted only a few seconds before spontaneously resolving. Then on 09/12/2023, he was at the kitchen sink with his head once again forward and down when he developed an intense feeling, turned his head to the right and felt as though his eyes were rolling. He had near syncope, headache, and shortness of breath. He eased himself to the floor and sat there for a while before laying down with his knees elevated. After laying on the ground for 15 to 20 minutes, he cautiously stood up, went to his bedroom, and laid down in his bed. He states that he laid there until admission on 09/16/2023 only to leave his bedroom to eat breakfast. His symptoms have been persistent since then with continued lightheadedness which she now describes as "low-grade." He has had blurry vision and has had difficulty focusing with both of his eyes. His vision feels better if only using 1 eye at a time. He describes a "prism" in bilateral eyes even when his eyes are closed for the past 2 months but now has color associated to the "prism." He denies orthopnea, chest pain, syncope, palpitations, edema, or bleeding such as melena, hematochezia, or hematuria. Despite being in a hospital bed, symptoms persist. On telemetry, he has had sinus rhythm with mild sinus bradycardia. There is no definite arrhythmia on telemetry however significant artifact noted. On initial ECG, he was noted to have sinus rhythm with premature supraventricular ectopic complexes and intraventricular conduction block but on repeat ECG on 09/16/2023 at 11:19 AM, he had an atrial run that was nonsustained but otherwise predominantly sinus rhythm. Review of systems: As above. Review of systems otherwise negative/unremarkable. Family history: No known premature CAD. Social history: Denies significant smoking. 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 No recent drug use. Worked as a reach truck operator. but . Has children. Unaccompanied in his hospital ER room. Allergies Allergy/AdvReac Type Severity Reaction Status Date / Time Penicillins Allergy Intermediate HIVES, Verified 09/16/23 11:52 CHILDHOOD thioridazine [From Mellaril] Allergy Unknown I don't Unverified 09/16/23 11:52 remember, it was a long time ago. clonazepam AdvReac Intermediate HEADACHE Verified 09/16/23 11:52 trazodone AdvReac Unknown "TOO HAPPY" Verified 09/16/23 11:52 Home Medications Medication Instructions Recorded Confirmed Type amlodipine 10 mg tablet 10 mg PO QAM 03/10/19 09/16/23 History ketoconazole 2 % shampoo 1 appln topical .COMPLEX #120 mL 03/10/19 09/16/23 Rx pantoprazole 40 mg tablet,delayed 40 mg PO QAM 03/10/19 09/16/23 History release propranolol 80 mg capsule,24 80 mg PO BID 03/10/19 09/16/23 History hr,extended release tramadol 50 mg tablet 150 mg PO QAM 03/10/19 09/16/23 History gabapentin 300 mg tablet 300 mg PO TID 09/16/23 09/16/23 History lisinopril 5 mg tablet 2.5 mg PO QAM 09/16/23 09/16/23 History metformin 500 mg tablet,extended See Rx Instructions .Route .COMPLEX 09/16/23 09/16/23 History release 24 hr Patient History Medical History GERD (gastroesophageal reflux disease) Diabetes mellitus type 2 in obese Gastric ulcer Hypercholesteremia Hypertension Arthritis Exposure to Agent Tracy Surgical History S/P bariatric surgery due to intestinal and stomach issues Family History (Updated 09/16/23 @ 12:31 by Kaitlin Braun MD) Other Family history non-contributory Social History Smoking Status: Never smoker Second Hand Exposure: No; Do You Dip or Chew Tobacco: No; Tobacco Cessation Education Requested by Patient: No Hx Alcohol Use: No Hx Substance Use: No Preferred Language: Bulgarian Communication Ability: Effective 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 Alert and oriented. HEENT: Anicteric sclera. Neck: No JVD. No bruits. Normal carotid upstrokes bilaterally. Cardiac: No ventricular heave. Regular. Normal S1-S2. No murmurs, rubs, or gallops. Pulmonary: Clear to auscultation bilaterally without wheezes, rales, or rhonchi. Abdomen: Soft, nontender, nondistended, with normoactive bowel sounds. No bruits noted. Extremities: 2+ radial pulses bilaterally. 2+ posterior tibialis pulses bilaterally. No edema or cyanosis. Psychiatric: Affect appears appropriate. Results & Data Vital Signs (Past 12 Hours) Vital Signs Temp Pulse Pulse Resp BP BP Pulse Ox 09/16/23 12:53 91 H 17 09/16/23 12:40 59 L 18 97 09/16/23 12:30 88 17 96 09/16/23 12:20 64 18 97 09/16/23 12:10 55 L 9 L 95 09/16/23 12:00 58 L 13 95 09/16/23 11:50 62 11 L 95 09/16/23 11:40 58 L 18 96 09/16/23 11:30 57 L 18 96 09/16/23 11:20 85 14 94 09/16/23 11:18 150 H 09/16/23 11:10 59 L 13 97 09/16/23 10:50 119 H 17 09/16/23 10:40 55 L 10 L 96 09/16/23 10:30 57 L 10 L 94 09/16/23 10:20 55 L 10 L 97 09/16/23 10:10 55 L 9 L 94 09/16/23 10:04 151/96 H 09/16/23 10:04 60 12 95 09/16/23 10:04 60 16 151/78 H 95 09/16/23 10:00 71 15 94 09/16/23 09:50 55 L 10 L 95 09/16/23 09:40 73 16 96 09/16/23 09:30 61 16 96 09/16/23 09:21 65 09/16/23 09:20 61 9 L 95 03/11/24 09:17 66 17 97 09/16/23 08:59 36.1 C L 67 20 190/101 H 96 O2 Del Method 09/16/23 12:53 09/16/23 12:40 09/16/23 12:30 09/16/23 12:20 09/16/23 12:10 09/16/23 12:00 09/16/23 11:50 09/16/23 11:40 09/16/23 11:30 09/16/23 11:20 09/16/23 11:18 09/16/23 11:10 09/16/23 10:50 09/16/23 10:40 09/16/23 10:30 09/16/23 10:20 09/16/23 10:10 09/16/23 10:04 09/16/23 10:04 09/16/23 10:04 Room Air 09/16/23 10:00 09/16/23 09:50 09/16/23 09:40 09/16/23 09:30 09/16/23 09:21 09/16/23 09:20 09/16/23 09:17 09/16/23 08:59 Room Air Laboratory Results Laboratory Results - last 24 hr 09/16/23 09/16/23 09/16/23 09:15 10:15 Unknown WBC 6.50 RBC 5.20 Hgb 15.3 Hct 45.3 MCV 87.1 MCH 29.4 MCHC 33.8 RDW Std Deviation 43.1 RDW Coeff of Ranjana 13.6 Plt Count 172 MPV 11.2 Immature Gran % (Auto) 0.3 Neut % (Auto) 39.3 Lymph % (Auto) 46.6 Bulloch % (Auto) 8.2 Eos % (Auto) 4.8 Baso % (Auto) 0.8 Neut # (Auto) 2.56 Lymph # (Auto) 3.03 Bulloch # (Auto) 0.53 Eos # (Auto) 0.31 Baso # (Auto) 0.05 Immature Gran # (Auto) 0.02 APTT 30 PTT Ratio 1.1 Sodium 137 Potassium TNP 3.9 Chloride 105 Carbon Dioxide 24 Anion Gap 8 BUN 16 Creatinine 0.97 Est Cr Clr Drug Dosing 71.3 Est GFR ( Amer) 88.1 Est GFR (Non-Af Amer) 76.1 BUN/Creatinine Ratio 16.5 Glucose 99 Calcium 9.9 Total Bilirubin 0.6 AST TNP 37 ALT 56 H Alkaline Phosphatase 61 Troponin I High Sens 5.4 Total Protein 8.1 Albumin 4.8 Globulin 3.3 Albumin/Globulin Ratio 1.5 Lipase 69 Lyme Disease Screen Negative SARS-CoV-2, RNA, NAAT NEGATIVE Diagnostic Findings Brain MRI 09/16/2023: No acute intracranial findings per radiology. Left maxillary sinus air-fluid level with mucosal thickening may reflect acute on chronic sinusitis per radiology. Head CT 09/16/2023: No acute intracranial abnormality per radiology. Chest x-ray 09/16/2023: No acute process. History and physical report reviewed. ECGs personally reviewed: ECG 09/16/2023 at 9:11 AM: Sinus rhythm with premature supraventricular complex 69 bpm. IVCB. ECG 09/16/2023 at 11:19 AM: Sinus rhythm 90 bpm with nonsustained atrial run. Nonspecific IVCB. Labs reviewed from 09/16/2023 notable for normal blood counts, normal renal function, normal potassium, normal high-sensitivity troponin x 1. Echo 09/16/2023: 1. Top normal left ventricular size with low-normal systolic function. Estimated EF 50-55%. Abnormal septal motion consistent with bundle branch block. No definite regional wall motion abnormalities. Severe asymmetric hypertrophy of the basal septum, but otherwise mild concentric left ventricular hypertrophy. 2. Mild mitral regurgitation. 3. Normal estimated right ventricular systolic pressure, assuming normal right atrial pressure. 4. No visualized right to left interatrial shunt noted following agitated saline administration. 5. Technically difficult study, enhanced with IV Definity. 6. No prior study available for comparison. Medications Administered Current Inpatient Medications Acetaminophen (Acetaminophen 325 Mg Tab) 650 mg PO Q4H PRN PRN Reason: Pain or Fever Stop: 10/16/23 13:56 Amlodipine Besylate (Amlodipine Besylate 5 Mg Tab) 10 mg PO QAM [facility] Stop: 10/17/23 08:59 Dextrose (Dextrose 50% 50 Ml Syringe) 25 - 50 ml IV UD PRN; Protocol PRN Reason: Hypoglycemia Protocol Stop: 10/16/23 13:56 Enoxaparin Sodium (Enoxaparin Inj 40 Mg/0.4 Ml Syr) 40 mg SQ QAM [facility] Stop: 10/17/23 08:59 Gabapentin (Gabapentin 300 Mg Cap) 300 mg PO TID [facility] Stop: 10/16/23 13:59 Glucagon (Glucagon For Inj 1 Mg Vial) 1 mg SQ UD PRN; Protocol PRN Reason: Hypoglycemia Protocol Stop: 10/16/23 13:56 Glucose (Glucose 10 Tab/Tube) 4 - 8 tab PO UD PRN; Protocol PRN Reason: Hypoglycemia Treatment Stop: 10/16/23 13:56 Glucose (Glucose 40% Gel 15 Gm Tube) 15 - 30 gm PO UD PRN; Protocol PRN Reason: Hypoglycemia Protocol Stop: 10/16/23 13:56 Ceftriaxone Sodium 2,000 mg/ (Dextrose) 50 mls @ 100 mls/hr IV Q24H [facility]; Protocol Stop: 09/26/23 14:59 Insulin Aspart (Insulin Aspart Per Unit Charge) 0 units SC ACHS [facility] Stop: 10/16/23 16:29 Lisinopril (Lisinopril 2.5 Mg Tab) 2.5 mg PO QAM [facility] Stop: 10/17/23 08:59 Miscellaneous (Carbohydrates For Hypoglycemia ) 15 - 30 gm PO UD PRN PRN Reason: Hypoglycemia Protocol Stop: 10/16/23 13:56 Pantoprazole Sodium (Pantoprazole 40 Mg Tab) 40 mg PO QAM [facility] Stop: 10/17/23 08:59 Polyethylene Glycol (Polyethylene (Miralax) 17 Gm Pack) 17 gm PO DAILY PRN PRN Reason: Constipation Stop: 10/16/23 13:56 Propranolol HCl (Propranolol Hcl La 80 Mg Capcr) 80 mg PO BID [facility] Stop: 10/16/23 20:59 Tramadol HCl (Tramadol Hcl 50 Mg Tablet) 150 mg PO QAM [facility] Stop: 10/17/23 08:59 PG Care Time/CCT Total # of Minutes Spent Total Time Spent with Patient: Total time spent is greater than 50% in coordination of care (as documented) at patient's floor/unit and/or counseling patient: Coding Level of Care Code 98542 INT INP/OBS CARE 2/55MIN Diagnoses Near syncope R55 Atrial tachycardia I47.19 Hypertension I10 Visual changes H53.9
[2023-09-16] MEDS: INSULIN ASPART PER UNIT CHARGE SC SCH (17:10)
--- NOTE | 2023-09-16 17:25 | XCELERA ---
[id number]
[2023-09-16] MEDS: GABAPENTIN 300 MG CAP PO SCH (18:05)
[2023-09-16] MEDS: PROPRANOLOL HCL LA 80 MG CAPCR PO SCH (20:31)
--- NOTE | 2023-09-17 05:59 | Electrocardiogram Report ---
Test Reason : Blood Pressure : / mmHG Vent. Rate : 069 BPM Atrial Rate : 069 BPM P-R Int : 192 ms QRS Dur : 146 ms QT Int : 424 ms P-R-T Axes : 068 097 -59 degrees QTc Int : 454 ms Sinus rhythm with Premature supraventricular complexes Non-specific intra-ventricular conduction block Poor R wave progression, consider anterior FL vs. lead placement vs. LVH Abnormal ECG No previous ECGs available Confirmed by Brett Ricci ([id number]) on 09/17/2023 5:59:23 AM Referred By: [facility] Confirmed By:Brett Ricci
--- NOTE | 2023-09-17 06:18 | Electrocardiogram Report ---
Test Reason : Blood Pressure : / mmHG Vent. Rate : 090 BPM Atrial Rate : 000 BPM P-R Int : 000 ms QRS Dur : 142 ms QT Int : 444 ms P-R-T Axes : 000 106 -60 degrees QTc Int : 543 ms Sinus rhythm with atrial run Non-specific intra-ventricular conduction block Possible Anterolateral infarct (cited on or before 16-SEP-2023) T wave abnormality, consider inferior ischemia Abnormal ECG When compared with ECG of 16-SEP-2023 09:11, Atrial run is now Present Confirmed by Brett Ricci ([id number]) on 09/17/2023 6:17:39 AM Referred By: [facility] Confirmed By:Brett Ricci
[2023-09-17 06:47] LABS: Basophils # (auto) 0.04 K/uL (0.00-0.20); Basophils % (auto) 0.6 %; Eosinophils # (auto) 0.27 K/uL (0.00-0.50); Eosinophils % (auto) 4.3 %; Hematocrit (blood only) 42.3 % (42.0-52.0); Hemoglobin 14.2 g/dl (14.0-18.0); Immature Granulocytes # (auto) 0.02 K/uL (0.01-0.20); Immature Granulocytes % (auto) 0.3 %; Lymphocytes # (auto) 2.25 K/uL (1.20-3.40); Lymphocytes % (auto) 35.8 %; Mean Corpuscular Hemoglobin 29.5 pg (25.0-34.0); Mean Corpuscular Hgb Conc 33.6 g/dL (32.0-36.0); Mean Corpuscular Volume 87.9 fL (80.0-100.0); Mean Platelet Volume 11.6 fL (9.4-12.4); Monocytes # (auto) 0.62 K/uL (0.11-0.59); Monocytes % (auto) 9.9 %; Neutrophils # (auto) 3.09 K/uL (1.40-6.50); Neutrophils % (auto) 49.1 %; Platelet Count 176 K/uL (130-400); RDW Coefficient of Variation 13.8 % (11.5-14.5); RDW Standard Deviation 44.3 fL (36.4-46.3); Red Blood Count 4.81 M/uL (4.70-6.10); White Blood Count 6.29 K/ul (4.8-10.8)
[2023-09-17 06:55] LABS: Estimated Average Glucose 146 mg/dl; Hemoglobin A1C 6.7 % (4.5-5.6)
[2023-09-17 07:06] LABS: Albumin Globulin Ratio 1.6 (0.9-2); Albumin Level 4.5 gm/dl (3.4-5.0); BUN Creatinine Ratio 19.6 (10-20); Bilirubin,Total 0.6 mg/dl (0.2-1.0); Calcium 9.7 mg/dl (8.6-10.3); Est GFR (African American) 88.1 ml/min; Est GFR (Non-African American) 76.1 ml/min; Globulin 2.9 gm/dl (2.5-4.0); Magnesium 1.7 mg/dl (1.7-2.4); Potassium 3.8 mmol/L (3.5-5.1); Total Protein 7.4 gm/dl (6.0-8.3)
[2023-09-17 07:21] LABS: Thyroid Stimulating Hormone 2.915 uIu/ml (0.300-4.500)
[2023-09-17] MEDS: lisinopril 2.5 MG TAB PO SCH (08:20)
[2023-09-17] MEDS: PANTOprazole 40 MG TAB PO SCH (08:20)
[2023-09-17] MEDS: amLODIPine BESYLATE 5 MG TAB PO SCH (08:20)
[2023-09-17] MEDS: traMADol HCL 50 MG TABLET PO SCH (08:20)
--- NOTE | 2023-09-17 08:28 | Ultrasound Report ---
CAROTID ARTERY ULTRASOUND CLINICAL HISTORY: near syncope; visual change COMPARISON STUDY: None. TECHNIQUE: Real-time, grayscale, and color Doppler sonography of the carotid and vertebral arteries w as performed. Images were viewed in the transverse and longitudinal planes. FINDINGS: There is no significant atherosclerotic plaque. Velocity measurements are listed below. COMMON CAROTID PEAK SYSTOLIC VELOCITY (CM/S): RIGHT 75 LEFT 71 ICA PEAK SYSTOLIC VELOCITY (CM/S): RIGHT 67 LEFT 58 Systolic ratios between the internal to common carotid arteries were normal. Antegrade flow is seen in the vertebral arteries. The external carotid arteries are patent. IMPRESSION: Unremarkable carotid ultrasound. No evidence for a hemodynamically significant stenosis. ACT 112: Negative or not required by law. Electronically signed by: Andrez West M.D. 09/17/2023 8:27 AM
[2023-09-17] MEDS: ENOXAPARIN INJ 40 MG/0.4 ML SYR SQ SCH (09:04)
[2023-09-17] MEDS: SODIUM CHLORIDE 0.9% 500 ML IV ONE ×2 (13:57→16:54)
[2023-09-17] MEDS: cefTRIAXone SODIUM 2,000 MG in DEXTROSE 5 % MINI-B 50 ML IV SCH (15:11)
--- NOTE | 2023-09-17 16:40 | Hospitalist Progress Note ---
Date of Service September 17, 2023 Assessment & Plan (1) Near syncope: Plan: Patient presents with 1 brief and then 1 more prolonged episode of lightheadedness, near syncope, blurry vision, headache over the last 10 days prior to admission No symptoms of acute infection or illness i.e. afebrile, no leukocytosis, no nausea/vomiting/diarrhea/abdominal pain, no cough or cold symptoms. Hemoglobin normal, renal function and electrolytes all normal CT head does show significant left maxillary sinusitis-unknown chronicity Chest x-ray no pneumonia MRI brain ruled out stroke and does show acute on chronic left maxillary sinusitis Continues to have some runs of atrial tachycardia on telemetry but unclear if this relates to his lightheaded episodes The lightheadedness does not seem to be orthostatic although he did feel better after he laid down on the kitchen floor during the more prolonged episode. His orthostatic vital signs here are also positive Troponin is negative, ECG with intraventricular conduction delay, with LBBB, unknown chronicity Anaplasmosis smear negative, anaplasmosis DNA PCR pending Appreciate cardiology consultation-plan for 30-day cardiac event monitor after discharge. Carotid Doppler ordered and is normal. Echocardiogram with EF 50-55%, abnormal septal motion abnormality consistent with bundle branch block, and severe asymmetric hypertrophy of the basal septum. Bubble study negative -Give 500 mL of normal saline as a bolus today and repeat orthostatic vital signs-if remain positive, give another 500 mL of normal saline -Decrease amlodipine to 5 mg daily -Continue to treat acute sinusitis with IV ceftriaxone in case this is co ntributing -Monitor clinically (2) Atrial tachycardia: Plan: As noted above, consult cardiology, monitor on telemetry Echocardiogram as above Needs 30-day event monitor after discharge Cannot uptitrate propranolol anymore as his resting heart rate is in the 50s (3) Headache: Plan: As noted above, perhaps due to sinusitis versus hypotension? Now resolved Lyme titer negative, anaplasmosis smear negative, anaplasmosis DNA PCR pending Treating sinusitis with antibiotics in the form of ceftriaxone (4) Diabetes mellitus type 2 in obese: Plan: Only on metformin at home, hemoglobin A1c well-controlled at 6.7% Accu-Cheks, NovoLog supplemental insulin only (5) Hypertension: Plan: Blood pressures are controlled but with positive orthostatics Continue home lisinopril, propranolol, but decrease dose of amlodipine to 5 mg daily (6) Arthritis: Plan: Continue home tramadol 150 mg p.o. once daily in the morning (7) GERD (gastroesophageal reflux disease): Plan: Continue PPI Plan DVT prophylaxis-Lovenox SQ Disposition-continued stay PCU Full code but would not want prolonged life support if in a poor prognostic state. Also is Anglican and would not want any blood transfusions Discussed his care with his daughter at the bedside on 09/16 Admission and Anticipated Discharge Date Admission Date: September 16, 2023 Subjective Patient reports still having mild episodes of feeling lightheaded even while laying in bed and also felt lightheaded with standing for his orthostatic vital signs when they were positive. Denies shortness of breath or chest pain. Otherwise no acute issues. Telemetry with multiple short runs of atrial tachycardia with rates in the 130s but otherwise sinus bradycardia with rates in the 50s. I discussed his care with cardiology Physical Exam Constitutional: WD/WN, vitals as above Neck: trachea midline, no thyromegaly Respiratory: normal respiratory effort, lungs clear to auscultation Cardiovascular: RRR, no murmur, no edema Chest (Breasts): Chest: normal inspection of chest Gastrointestinal (Abdomen): normal bowel sounds, soft, nontender, no hepatosplenomegaly Musculoskeletal: Extremities: extremities normal to inspection; no cyanosis and no clubbing Skin: no rashes, warm and dry Neurologic: moves all extremities and awake; no focal motor deficits Psychiatric: A+Ox3, euthymic affect Lymphatic: no lymphedema Results & Data Results & Data Vital Signs (Past 12 Hours) Vital Signs Temp Pulse Pulse Resp BP Pulse Ox O2 Del Method 09/17/23 16:10 36.9 C 63 20 113/69 93 Room Air 09/17/23 15:09 58 L 09/17/23 10:28 37.1 C 64 20 117/75 92 Room Air 09/17/23 07:30 60 09/17/23 07:30 Room Air 09/17/23 07:14 36.6 C 60 14 129/81 96 Room Air Laboratory Results CBC, CMP, hemoglobin A1c, CK, TSH reviewed Diagnostic Findings Echocardiogram reviewed PG Care Time/CCT Total # of Minutes Spent Total Time Spent with Patient: Total time spent is greater than 50% in coordination of care (as documented) at patient's floor/unit and/or counseling patient: Coding Level of Care Code 95422 SUB INP/OBS CARE 235MIN Diagnoses Near syncope R55 Atrial tachycardia I47.19 Headache R51.9 Diabetes mellitus type 2 in obese E11.69; E66.9 Hypertension I10 Arthritis M19.90 GERD (gastroesophageal reflux disease) K21.9
[2023-09-18 07:05] LABS: Basophils # (auto) 0.04 K/uL (0.00-0.20); Basophils % (auto) 0.7 %; Eosinophils # (auto) 0.29 K/uL (0.00-0.50); Eosinophils % (auto) 5.2 %; Hematocrit (blood only) 41.4 % (42.0-52.0); Hemoglobin 13.7 g/dl (14.0-18.0); Immature Granulocytes # (auto) 0.02 K/uL (0.01-0.20); Immature Granulocytes % (auto) 0.4 %; Lymphocytes # (auto) 2.34 K/uL (1.20-3.40); Lymphocytes % (auto) 41.6 %; Mean Corpuscular Hemoglobin 29.5 pg (25.0-34.0); Mean Corpuscular Hgb Conc 33.1 g/dL (32.0-36.0); Mean Platelet Volume 11.6 fL (9.4-12.4); Monocytes # (auto) 0.49 K/uL (0.11-0.59); Monocytes % (auto) 8.7 %; Neutrophils # (auto) 2.45 K/uL (1.40-6.50); Neutrophils % (auto) 43.4 %; Platelet Count 150 K/uL (130-400); Red Blood Count 4.65 M/uL (4.70-6.10); White Blood Count 5.63 K/ul (4.8-10.8)
[2023-09-18 07:27] LABS: Albumin Globulin Ratio 1.6 (0.9-2); Albumin Level 4.2 gm/dl (3.4-5.0); BUN Creatinine Ratio 15.7 (10-20); Bilirubin,Total 0.5 mg/dl (0.2-1.0); Calcium 9.3 mg/dl (8.6-10.3); Creatinine Clr Calc Pharmacy 63.3 ml/min; Est GFR (African American) 77.4 ml/min; Est GFR (Non-African American) 66.8 ml/min; Globulin 2.7 gm/dl (2.5-4.0); Magnesium 1.9 mg/dl (1.7-2.4); Total Protein 6.9 gm/dl (6.0-8.3)
[2023-09-18] MEDS: amLODIPine BESYLATE 5 MG TAB PO SCH (10:08)
--- NOTE | 2023-09-18 13:14 | Discharge Summary ---
Discharge Summary Date of Service September 18, 2023 Notes For Next Care Provider Medication Changes From Visit Added Cefdinir 300mg po bid x 7 more days Decreased amlodipine to 5mg po daily Admission HPI Per Admitting Provider This patient is a 77-year-old male with history of DM 2, neuropathy, HTN, GERD, chronic arthritis pain who presents to the ER with 2 episodes in the last 10 days where he felt lightheaded, had a headache, some blurry vision, and the second episode lasted an hour and he felt like he was going to . There was no associated chest pain, heart palpitations, or syncope. Since the last episode 4 days ago, he continues to feel washed out and has been laying in bed all weekend, only getting out of bed to make himself meals. He reports that his vision is still not quite back to baseline. He did have an episode of "wooziness" here in the ER. He reports he has had sinus issues for many years. He also felt some associated shortness of breath with these episodes and has noticed dyspnea even at rest perhaps for several months. He called his PCP and they advised him to come to the ER for further evaluation. Here, his labs were all essentially normal, a chest x-ray showed nothing acute, a CT of the head did show a severe opacification of the left maxillary sinus along with some inflammation in the left ethmoid and sphenoid sinuses. On telemetry in the ER, he had some frequent runs of atrial fibrillation versus atrial tachycardia but otherwise was bradycardic, afebrile, nonhypoxic, and had mildly elevated blood pressures. Principal Dx & Hospital Course #1 = Principal Diagnosis (1) Near syncope: Patient presents with 1 brief and then 1 more prolonged episode of lightheadedness, near syncope, blurry vision, headache over the last 10 days prior to admission No symptoms of acute infection or illness i.e. afebrile, no leukocytosis, no nausea/vomiting/diarrhea/abdominal pain, no cough or cold symptoms. Hemoglobin normal, renal function and electrolytes all normal CT head does show significant left maxillary sinusitis-unknown chronicity Chest x-ray no pneumonia MRI brain ruled out stroke and does show acute on chronic left maxillary sinusitis Continues to have some frequent runs of atrial tachycardia on telemetry but unclear if this relates to his lightheaded episodes The lightheadedness does not seem to be orthostatic although he did feel better after he laid down on the kitchen floor during the more prolonged episode. His orthostatic vital signs here are also positive He was given 1 L NS and had amlodipine dose cut in half----> orthostatics no longer positive by day of discharge Troponin is negative, ECG with intraventricular conduction delay, with LBBB, unknown chronicity Anaplasmosis smear negative, anaplasmosis DNA PCR pending at time of discharge Appreciate cardiology consultation-plan for 30-day cardiac event monitor after discharge. Carotid Doppler ordered and is normal. Echocardiogram with EF 50- 55%, abnormal septal motion abnormality consistent with bundle branch block, and severe asymmetric hypertrophy of the basal septum. Bubble study negative Continue to treat acute sinusitis with IV ceftriaxone inpatient and transitioned to po cefdinir 300mg po bid x 7 more days after discharge in case this is contributing f/u PCP (2) Atrial tachycardia: As noted above, consult cardiology, monitor on telemetry Echocardiogram as above Needs 30-day event monitor after discharge Cannot uptitrate propranolol anymore as his resting heart rate is in the 50s Consider amiodarone for PSVT as outpt but defer to Cardiology as outpt (3) Headache: As noted above, perhaps due to sinusitis versus hypotension? Now resolved Lyme titer negative, anaplasmosis smear negative, anaplasmosis DNA PCR pending Treating sinusitis with antibiotics in the form of ceftriaxone and then po cef dinir (4) Diabetes mellitus type 2 in obese: Only on metformin at home, hemoglobin A1c well-controlled at 6.7% Accu-Cheks, NovoLog supplemental insulin only given here (5) Hypertension: Blood pressures are controlled but with positive orthostatics as above, now resolved Continue home lisinopril, propranolol, but decreased dose of amlodipine to 5 mg daily (6) Arthritis: Continue home tramadol 150 mg p.o. once daily in the morning (7) GERD (gastroesophageal reflux disease): Continue PPI Plan DVT prophylaxis-Lovenox SQ Disposition-dc to home, much improved Full code but would not want prolonged life support if in a poor prognostic s silva. Also is [facility] and would not want any blood transfusions Discussed his care with his daughter at the bedside on 09/16 and 09/17 Discharge Exam Constitutional WD/WN, vitals as above Neck trachea midline, no thyromegaly Respiratory normal respiratory effort, lungs clear to auscultation Cardiovascular RRR, no murmur, no edema Chest (Breasts) Chest: normal inspection of chest Gastrointestinal (Abdomen) normal bowel sounds, soft, nontender, no hepatosplenomegaly Musculoskeletal Extremities: extremities normal to inspection; no cyanosis and no clubbing Skin no rashes, warm and dry Neurologic moves all extremities and awake; no focal motor deficits Psychiatric A+Ox3, euthymic affect Lymphatic no lymphedema Updated Medication List Medication Instructions Recorded Confirmed Type amlodipine 10 mg tablet 10 mg PO QAM 03/10/19 09/16/23 History ketoconazole 2 % shampoo 1 appln topical .COMPLEX #120 mL 03/10/19 09/16/23 Rx pantoprazole 40 mg tablet,delayed 40 mg PO QAM 03/10/19 09/16/23 History release propranolol 80 mg capsule,24 80 mg PO BID 03/10/19 09/16/23 History hr,extended release tramadol 50 mg tablet 150 mg PO QAM 03/10/19 09/16/23 History gabapentin 300 mg tablet 300 mg PO TID 09/16/23 09/16/23 History lisinopril 5 mg tablet 2.5 mg PO QAM 09/16/23 09/16/23 History metformin 500 mg tablet,extended See Rx Instructions .Route .COMPLEX 09/16/23 09/16/23 History release 24 hr cefdinir 300 mg capsule 300 mg PO BID #14 caps 09/18/23 Rx Hospital Stay Data Consultations 09/16/23 11:44 ED Decision to Admit Stat 09/16/23 12:39 Consult Cardiology Routine Diagnostic Imagining Performed 09/16/23 09:19 CT head/brain wo con Stat 09/16/23 13:21 MR brain wo/w con Routine 09/16/23 21:40 Carotid duplex [US carotid doppler BI] Routine ECHO Pending Results Patient Have Any Pending Studies at Discharge: Yes (Anaplasmosis DNA PCR) Discharge Instructions Given to Patient (Per Discharging Provider) You were admitted for evaluation of lightheadedness. Your blood pressures were dropping with standing and you were given IV fluids. Your amlodipine dose was cut in half. You had some frequent short runs of a fast heart rhythm called atrial tachycardia. You will need a 30 day cardiac event monitor after discharge and this can be arranged through the [place]. You will need to follow up with a Research Management Associate for this after discharge. This most likely is not related to your episodes of lightheadedness, but is possible. You are also being treated for a sinus infection and should finish out 7 more days of the antibiotic called Cefdinir, twice a day. Total Time Total Time Spent Total Time Spent (In Minutes): 35 min Coding Level of Care Code 87080 INP/OBS DISCH >30 MIN Diagnoses Near syncope R55 Atrial tachycardia I47.19 Headache R51.9 Diabetes mellitus type 2 in obese E11.69; E66.9 Hypertension I10 Arthritis M19.90 GERD (gastroesophageal reflux disease) K21.9
--- NOTE | 2023-09-19 21:48 | Electrocardiogram Report ---
Test Reason : Blood Pressure : / mmHG Vent. Rate : 052 BPM Atrial Rate : 052 BPM P-R Int : 190 ms QRS Dur : 154 ms QT Int : 492 ms P-R-T Axes : 064 -57 104 degrees QTc Int : 457 ms Sinus bradycardia Left axis deviation Left bundle branch block Abnormal ECG When compared with ECG of 16-SEP-2023 11:19, Vent. rate has decreased BY 38 BPM QRS axis Shifted left T wave inversion no longer evident in Inferior leads Confirmed by Brett Ricci ([id number] on 09/19/2023 9:47:50 PM Referred By: [facility] Confirmed By:Brett Ricci
--- NOTE | 2023-09-20 06:18 | Electrocardiogram Report ---
Test Reason : Blood Pressure : / mmHG Vent. Rate : 052 BPM Atrial Rate : 052 BPM P-R Int : 204 ms QRS Dur : 152 ms QT Int : 498 ms P-R-T Axes : 059 -52 116 degrees QTc Int : 463 ms Sinus bradycardia Left axis deviation Left bundle branch block Abnormal ECG When compared with ECG of 17-SEP-2023 03:35, No significant change was found Confirmed by Brett Ricci ([id number] on 09/20/2023 6:18:26 AM Referred By: [facility] Confirmed By:Brett Ricci
== END 2023-09-18 14:35 | disposition home or self-care (01) ==
LOC: ED 08:53 → EDINP 08:53 → 2E 19:08